=== PATIENT | female | born 1970 | race Caucasian/White ===

== ENCOUNTER 2016-11-28 12:30 | Emergency (ER) | payer OTHER ==
[2016-11-28] MEDS ORDERED: NS 0.9% 1000 ML* 1,000 ML IV ONE (12:58)
[2016-11-28] MEDS ORDERED: Ondansetron INJ* 2 MG/ML VIAL IV ONE (12:58)
--- NOTE | 2016-11-28 14:04 | RAD ---
INDICATION: Right-sided pain COMPARISON: None TECHNIQUE: Longitudinal and transverse scans of the right upper quadrant were obtained. Doppler interrogation of the hepatic and portal venous system was performed. FINDINGS: Liver: The liver is normal in size and echogenicity. There are no focal masses. The liver measures 13.0 cm in cephalocaudal dimension. Vessels: There is normal hepatic and portal venous flow. Bile ducts: There is no evidence of intrahepatic or extrahepatic ductal dilatation. The common duct measures 0.3 cm. Gallbladder: The sonographic appearance of the gallbladder is normal. There is no evidence of cholelithiasis, thickening of the gallbladder wall, or pericholecystic fluid. Pancreas: The visualized pancreas appears normal Right kidney: The right kidney is normal in size and echogenicity. There are no masses or calculi. There is no evidence of hydronephrosis. The right kidney measures 10.7 x 3.5 x 5.2 cm. IVC and aorta: The aorta and superior vena cava appear normal. Fluid: There is no ascites. Other: None. IMPRESSION: NORMAL GALLBLADDER.
--- NOTE | 2016-11-28 14:12 | RAD ---
Indication: Right lower quadrant pain, history of right ovarian cyst. COMPARISON: Comparison is made with a prior pelvic ultrasound from August 03, 2012. TECHNIQUE: Multiple real-time transvaginal images of the pelvis were obtained. FINDINGS: The uterus is mildly enlarged and normal in shape. The uterus measured 10.0 x 5.1 x 6.7 cm. The endometrial echo is slightly prominent and heterogeneous measuring 1.2 cm in thickness. There is a small hypoechoic mass present in the posterior body of the uterus measuring 1.4 x 0.7 x 1.0 cm most consistent with a small leiomyoma. The right ovary measured 2.5 x 1.0 x 1.8 cm. The left ovary measured 3.2 x 1.2 x 2.3 cm. There is vascular flow within both ovaries. There is a small simple cyst present within the left ovary measured 1.5 x 1.1 x 1.6 cm most consistent with a follicular cyst. No free intraperitoneal fluid is seen. IMPRESSION: 1. NO EVIDENCE FOR OVARIAN TORSION. 2. MILDLY ENLARGED UTERUS WITH AT LEAST ONE SMALL LEIOMYOMA NOTED. 3. MILDLY PROMINENT HETEROGENEOUS ENDOMETRIUM. SUGGEST A FOLLOW-UP TRANSVAGINAL PELVIC ULTRASOUND IN 1-2 MONTHS TIME.
[2016-11-28 15:06] LABS: Hematocrit 40 % (35-47); Hemoglobin 13.5 g/dl (12.0-16.0); Mean Corpuscular HGB Conc 33 g/dl (31-36); Mean Corpuscular Hemoglobin 30 pg (27-31); Mean Corpuscular Volume 91 fL (80-97); Mean Platelet Volume 8 um3 (7.4-10.4); Red Blood Count 4.46 10^6/ul (4.0-5.4); Red Cell Distribution Width 14 % (10.5-15); White Blood Count 7.2 10^3/ul (3.5-10.8)
[2016-11-28 15:08] LABS: Urine Bilirubin Negative (Negative); Urine Glucose Negative (Negative); Urine Nitrite Negative (Negative)
[2016-11-28 15:22] LABS: BUN/Creatinine Ratio 15.5 (8-20); EGFR Non-African American 72.4 (>60); Potassium 3.9 mmol/L (3.5-5.0)
[2016-11-28 15:23] LABS: Albumin 4.3 g/dL (3.2-5.2); C Reactive Protein 1.58 mg/L (< 5.00); Calcium 9.8 mg/dL (8.6-10.3); EGFR African American 93.1 (>60); Globulin 2.9 g/dL (2-4); Total Bilirubin 0.4 mg/dL (0.2-1.0); Total Protein 7.2 g/dL (6.4-8.9)
[2016-11-28] MEDS ORDERED: Iohexol 300* (CONTRAST) 10 ML SDV IV ONE (15:35)
[2016-11-28 15:38] LABS: TSH (Thyroid Stimulating Horm) 2.19 mcIU/mL (0.34-5.60)
[2016-11-28 15:45] VITALS: BP 117/72
--- NOTE | 2016-11-28 16:26 | RAD ---
Indication: Right lower quadrant pain. Contrast: Administered 91.0 ml of OMNIPAQUE 300 mgi/ml CT of the abdomen and pelvis was performed after oral and IV contrast administration. Coronal and sagittal reconstructed images were obtained. The lung bases demonstrate no pleural fluid, nodules or masses. Some pleural parenchymal scarring is noted in the left lung base. The heart demonstrates no pericardial effusion. Liver is normal in size. No focal lesions or intrahepatic ductal dilatation is noted. The gallbladder demonstrates no calcified gallstone. No pericholecystic fluid or wall thickening is identified. The spleen is normal in size. The pancreas demonstrates no mass or pancreatic ductal dilatation. Common duct is not dilated. No adrenal masses are noted. The kidneys demonstrate symmetric nephrograms. Symmetric excretion is noted no evidence of significant hydronephrosis or hydroureter. No retroperitoneal lymphadenopathy is noted. The colon is filled with stool. CT of the pelvis demonstrates normal appearing appendix. There are foci of air within the appendix. No pelvic adenopathy is noted. No dilated loops of bowel are noted. The colon is filled with stool. The urinary bladder is unremarkable. The uterus demonstrates no focal masses. The ovaries are grossly unremarkable. No free fluid is identified. No hernias are noted. IMPRESSION: NORMAL APPEARING APPENDIX. NO ABNORMAL MASSES OR FLUID COLLECTIONS ARE NOTED. NO EVIDENCE OF BOWEL OBSTRUCTION IS IDENTIFIED.
--- NOTE | 2016-11-28 17:00 | ED ---
I, Veto,Heber, scribed for Herb Schwartz MD on 11/28/16 at 1259 . Abdominal Pain/Female - HPI Summary HPI Summary: This 46 y/o female presents to ED for acute on chronic right sided abd pain that radiates to back since 2 days ago. Pt states that her abd discomfort started since 2-3 months ago but decided to visit ED today with PCP's urges. Pt reports chronic loose stool since 2 days ago and abd bloating, mild nausea, but denies any fever, chills, black stools, dysuria, or hematuria. Movement does not make the pain worse. PMHx includes ovarian cyst s/p removal in , 2 mm right ovarian cyst that is currently being monitored since last summer. 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 LMP is 3 weeks ago. She reports that her menstrual cycles are very irregular with intermittent bleeding in between. Pt is agreeable to transvaginal US. - History of Current Complaint Chief Complaint: EDAbdPain Stated Complaint: ABD AND BACK PAIN Time Seen by Provider: 11/28/16 12:44 Hx Obtained From: Patient, Medical Records Hx Last Menstrual Period: 11/07/2016 Onset/Duration: Gradual Onset, Still Present Timing: Constant Pain Intensity: 3 Pain Scale Used: 0-10 Numeric Location: Discrete At: RLQ Radiates: Yes Radiates to: Back Character: Dull, Other: - bloating Aggravating Factor(s): Nothing Alleviating Factor(s): Nothing Associated Signs and Symptoms: Positive: Nausea, Diarrhea - loose. Negative: Fever, Blood in Stool, Urinary Symptoms, Decreased Appetite Allergies/Adverse Reactions: Allergies Allergy/AdvReac Type Severity Reaction Status Date / Time Azithromycin [From Zithromax] Allergy Rash Verified 03/24/16 15:50 Sulfa Antibiotics Allergy Rash Verified 03/24/16 15:50 PMH/Surg Hx/FS Hx/Imm Hx Endocrine/Hematology History: Denies: Hx Diabetes, Hx Thyroid Disease Cardiovascular History: Denies: Hx Hypertension Respiratory History: Denies: Hx Asthma, Hx Chronic Obstructive Pulmonary Disease (COPD) GI History: Denies: Hx Ulcer - Cancer History Hx Chemotherapy: No Hx Radiation Therapy: No - Surgical History Surgery Procedure, Year, and Place: C5-C6 FUSION Infectious Disease History: No Infectious Disease History: Denies: Hx Hepatitis, Hx Human Immunodeficiency Virus (HIV), Traveled Outside the [place] in Last 30 Days - Family History Known Family History: Negative: Other - breast CA - Social History Alcohol Use: Occasionally Hx Substance Use: No Substance Use Type: Reports: None Hx Tobacco Use: No Smoking Status (MU): Never Smoked Tobacco Review of Systems Negative: Fever, Chills Positive: Abdominal Pain - right sided abd pain radiating to back, Diarrhea - loose, Nausea Negative: dysuria, hematuria Negative: Anxious, Depressed All Other Systems Reviewed And Are Negative: Yes Physical Exam Triage Information Reviewed: Yes Vital Signs On Initial Exam: Initial Vitals Temp Pulse Resp BP Pulse Ox 98.2 F 56 20 102/70 100 11/28/16 12:33 11/28/16 12:33 11/28/16 12:33 11/28/16 12:33 11/28/16 12:33 Vital Signs Reviewed: Yes Appearance: Positive: Pain Distress - mild Skin: Positive: Warm, Skin Color Reflects Adequate Perfusion, Dry Head/Face: Positive: Normal Head/Face Inspection Eyes: Positive: EOMI, BRYAN Neck: Positive: Supple, Nontender Respiratory/Lung Sounds: Positive: Breath Sounds Present Cardiovascular: Positive: RRR, Pulses are Symmetrical in both Upper and Lower Extremities Abdomen Description: Positive: Other: - right mid tenderness Bowel Sounds: Positive: Present Musculoskeletal: Positive: Strength/ROM Intact Neurological: Positive: Sensory/Motor Intact, Alert, Oriented to Person Place, Time Psychiatric: Positive: Affect/Mood Appropriate AVPU Assessment: Alert Diagnostics - Vital Signs Vital Signs Temp Pulse Resp BP Pulse Ox 11/28/16 12:33 98.2 F 56 20 102/70 100 - Laboratory Lab Results: Lab Results 11/28/16 11/28/16 11/28/16 Range/Units 14:45 14:45 14:45 WBC 7.2 (3.5-10.8) 10^3/ul RBC 4.46 (4.0-5.4) 10^6/ul Hgb 13.5 (12.0-16.0) g/dl Hct 40 (35-47) % MCV 91 (80-97) fL MCH 30 (27-31) pg MCHC 33 (31-36) g/dl RDW 14 (10.5-15) % Plt Count 266 (150-450) 10^3/ul MPV 8 (7.4-10.4) um3 Neut % (Auto) 57.9 (38-83) % Lymph % (Auto) 31.0 (25-47) % [place] % (Auto) 7.7 (1-9) % Eos % (Auto) 2.2 (0-6) % Baso % (Auto) 1.2 (0-2) % Absolute Neuts (auto) 4.2 (1.5-7.7) 10^3/ul Absolute Lymphs (auto) 2.2 (1.0-4.8) 10^3/ul Absolute Monos (auto) 0.6 (0-0.8) 10^3/ul Absolute Eos (auto) 0.2 (0-0.6) 10^3/ul Absolute Basos (auto) 0.1 (0-0.2) 10^3/ul Absolute Nucleated RBC 0.01 10^3/ul Nucleated RBC % 0.1 INR (Anticoag Therapy) 0.94 (0.89-1.11) APTT 31.6 (26.0-36.3) seconds Sodium 136 (133-145) mmol/L Potassium 3.9 (3.5-5.0) mmol/L Chloride 104 (101-111) mmol/L Carbon Dioxide 30 (22-32) mmol/L Anion Gap 2 (2-11) mmol/L BUN 13 (6-24) mg/dL Creatinine 0.84 (0.51-0.95) mg/dL Est GFR ( Amer) 93.1 (>60) Est GFR (Non-Af Amer) 72.4 (>60) BUN/Creatinine Ratio 15.5 (8-20) Glucose 83 (70-100) mg/dL Lactic Acid (0.5-2.0) mmol/L Calcium 9.8 (8.6-10.3) mg/dL Total Bilirubin 0.40 (0.2-1.0) mg/dL AST 18 (13-39) U/L ALT 15 (7-52) U/L Alkaline Phosphatase 53 (34-104) U/L C-Reactive Protein 1.58 (< 5.00) mg/L Total Protein 7.2 (6.4-8.9) g/dL Albumin 4.3 (3.2-5.2) g/dL Globulin 2.9 (2-4) g/dL Albumin/Globulin Ratio 1.5 (1-3) Lipase 38 (11.0-82.0) U/L TSH 2.19 (0.34-5.60) mcIU/mL Beta HCG, Quant 0.94 mIU/mL Urine Color Urine Appearance Urine pH (5-9) Ur Specific [place] (1.010-1.030) Urine Protein (Negative) Urine Ketones (Negative) Urine Blood (Negative) Urine Nitrate (Negative) Urine Bilirubin (Negative) Urine Urobilinogen (Negative) Ur Leukocyte Esterase (Negative) Urine Glucose (Negative) 11/28/16 11/28/16 Range/Units 14:45 14:45 WBC (3.5-10.8) 10^3/ul RBC (4.0-5.4) 10^6/ul Hgb (12.0-16.0) g/dl Hct (35-47) % MCV (80-97) fL MCH (27-31) pg MCHC (31-36) g/dl RDW (10.5-15) % Plt Count (150-450) 10^3/ul MPV (7.4-10.4) um3 Neut % (Auto) (38-83) % Lymph % (Auto) (25-47) % [place] % (Auto) (1-9) % Eos % (Auto) (0-6) % Baso % (Auto) (0-2) % Absolute Neuts (auto) (1.5-7.7) 10^3/ul Absolute Lymphs (auto) (1.0-4.8) 10^3/ul Absolute Monos (auto) (0-0.8) 10^3/ul Absolute Eos (auto) (0-0.6) 10^3/ul Absolute Basos (auto) (0-0.2) 10^3/ul Absolute Nucleated RBC 10^3/ul Nucleated RBC % INR (Anticoag Therapy) (0.89-1.11) APTT (26.0-36.3) seconds Sodium (133-145) mmol/L Potassium (3.5-5.0) mmol/L Chloride (101-111) mmol/L Carbon Dioxide (22-32) mmol/L Anion Gap (2-11) mmol/L BUN (6-24) mg/dL Creatinine (0.51-0.95) mg/dL Est GFR ( Amer) (>60) Est GFR (Non-Af Amer) (>60) BUN/Creatinine Ratio (8-20) Glucose (70-100) mg/dL Lactic Acid 0.7 (0.5-2.0) mmol/L Calcium (8.6-10.3) mg/dL Total Bilirubin (0.2-1.0) mg/dL AST (13-39) U/L ALT (7-52) U/L Alkaline Phosphatase (34-104) U/L C-Reactive Protein (< 5.00) mg/L Total Protein (6.4-8.9) g/dL Albumin (3.2-5.2) g/dL Globulin (2-4) g/dL Albumin/Globulin Ratio (1-3) Lipase (11.0-82.0) U/L TSH (0.34-5.60) mcIU/mL Beta HCG, Quant mIU/mL Urine Color Colorless Urine Appearance Clear Urine pH 7.0 (5-9) Ur Specific [place] 1.003 L (1.010-1.030) Urine Protein Negative (Negative) Urine Ketones Negative (Negative) Urine Blood Negative (Negative) Urine Nitrate Negative (Negative) Urine Bilirubin Negative (Negative) Urine Urobilinogen Negative (Negative) Ur Leukocyte Esterase Negative (Negative) Urine Glucose Negative (Negative) Result Diagrams: 11/28/16 14:45 11/28/16 14:45 Lab Statement: Any lab studies that have been ordered have been reviewed, and results considered in the medical decision making process. - CT Ab/P CT Interpretation: No Acute Changes - NORMAL APPEARING APPENDIX. NO ABNORMAL MASSES OR FLUID COLLECTIONS ARE NOTED. NO EVIDENCE OF BOWEL OBSTRUCTION IS IDENTIFIED. CT Interpretation Completed By: Radiologist - Additional Comments Diagnostic Additional Comments: US Gallbladder -- Normal Gallbladder US Transvaginal -- 1. NO EVIDENCE FOR OVARIAN TORSION. 2. MILDLY ENLARGED UTERUS WITH AT LEAST ONE SMALL LEIOMYOMA NOTED. 3. MILDLY PROMINENT HETEROGENEOUS ENDOMETRIUM. SUGGEST A FOLLOW-UP TRANSVAGINAL PELVIC ULTRASOUND IN 1-2 MONTHS TIME. Re-Evaluation - Re-Evaluation First Eval Re-Evaluation Time: 16:13 Comment: in room to update pt on plan of care. Abdominal Pain Fem Course/Dx - Course Course Of Treatment: WELL IN ED. DISCUSSED RESULTS WITH PATIENT. PAIN 3/10 IN ED. DISCHARGE HOME STABLE, WILL F/U WITH PMD. - Diagnoses Provider Diagnoses: Abdominal pain, Leiomyoma Discharge - Discharge Plan Condition: Stable Disposition: HOME Patient Education Materials: Abdominal Pain (ED), Uterine Fibroids (ED) Referrals: Tera Babb MD [Primary Care Provider] - Additional Instructions: FOLLOW UP WITH YOUR DOCTOR. RETURN TO THE EMERGENCY DEPARTMENT FOR ANY WORSENING OF YOUR CONDITION; PAIN, FEVER, YOU FEEL ILL OR QUESTIONS OR CONCERNS. The documentation as recorded by the Veto tang Soohyun accurately reflects the service I personally performed and the decisions made by me, Herb Schwartz MD.
== END 2016-11-28 17:31 | disposition home or self-care (01) ==
LOC: ED 12:30
DX: R10.31 Right lower quadrant pain (principal); D21.9 Benign neoplasm of connective and other soft tissue, unspecified; R11.0 Nausea; R19.7 Diarrhea, unspecified
CPT/HCPCS: 36415; 74177; 76705; 76830; 80053; 81003; 83605; 83690; 84443; 84702; 85025; 85610; 85730; 86140; 96374; 99283; J2405; Q9967

== ENCOUNTER 2017-09-13 09:33 | Emergency (ER) | payer OTHER ==
--- NOTE | 2017-09-13 11:45 | RAD ---
Indication: Pelvic pain. CT of the abdomen and pelvis was performed without oral or IV contrast administration. Coronal and sagittal reconstructed images were obtained. Lung bases demonstrate no pleural fluid, nodules or masses. Heart size without evidence of pericardial effusion. The liver is normal in size. No focal lesions or intrahepatic ductal dilatation is noted. The pancreas demonstrates no mass or pancreatic duct dilatation. The common duct is not dilated. The gallbladder demonstrates no calcified gallstones. No pericholecystic fluid or wall thickening is identified. The spleen is normal in size. No adrenal masses are noted. The kidneys demonstrate no hydronephrosis. No a residual dilatation is noted. No dilated loops of bowel are noted. Colon is filled with stool. CT of the pelvis demonstrates enlarged right ovary with probable ovarian cyst measuring up to 3.8 cm. No definite free fluid is identified. Urinary bladder is unremarkable. IMPRESSION: No evidence of obstructive uropathy is noted. There is suggestion of a right ovarian cyst measuring up to 3.8 cm.
--- NOTE | 2017-09-13 12:23 | RAD ---
INDICATION: Pelvic pain history of ovarian cyst, right lower quadrant pain. COMPARISON: Comparison is made with a prior pelvic ultrasound from November 28, [address] of the abdomen and pelvis from September 13, 2017. TECHNIQUE: Multiple real-time transvaginal images of the pelvis were obtained. FINDINGS: The uterus was mildly enlarged and slightly heterogeneous in echogenicity. The uterus measured 10.4 x 5.4 x 7.0 cm. The endometrial echo measured 0.5 cm in thickness. The right ovary measured 5.1 x 3.2 x 4.6 cm. The left ovary measured 3.0 x 1.1 x 1.5 cm. There is vascular flow within both ovaries. There is a slightly complex cyst present within the right ovary measuring 4.3 x 2.6 x 3.5 cm. This correlates with the prior CT abnormality. No free intraperitoneal fluid is seen. IMPRESSION: 1. SLIGHTLY COMPLEX LOW SUSPICION 4.3 CM RIGHT OVARIAN CYST. RECOMMEND A FOLLOW-UP PELVIC ULTRASOUND IN 1-2 MONTHS TIME TO DEMONSTRATE RESOLUTION. 2. MILDLY ENLARGED UTERUS.
[2017-09-13 12:37] VITALS: BP 110/52
--- NOTE | 2017-09-13 13:12 | UC ---
Complaint Female HPI - HPI Summary HPI Summary: Patient presents with a complaints of right lower quadrant abdominal pain which she states has been a problem for a long time, and states she had been worked up by Dr. Chan and is considering an underline ablation. She presents today states her last period was two months ago, and now she had her periods and also reports pelvic pain that has gotten more severe. She states the pain is in the RLQ, and is a sharp pain. She denies any abnormal vaginal discharge, dysuria and states she has been checked for STD's and had multiple visits, test, US, and the work-ups are always the same. She presents today primarily as a result of abdominal pain/pelvic pain. - History Of Current Complaint Chief Complaint: UCGU Stated Complaint: PELVIC PAIN Time Seen by Provider: 09/13/17 09:59 Hx Obtained From: Patient Hx Last Menstrual Period: 09/08/17 Onset/Duration: Gradual Onset, Lasting Days Timing: Constant Severity Initially: Mild Severity Currently: Moderate Pain Intensity: 2 Pain Scale Used: 0-10 Numeric Character: Sharp Aggravating Factor(s): Movement Alleviating Factor(s): Nothing Associated Signs And Symptoms: Positive: Negative - Risk Factors Ectopic Risk Factor: Negative Ovarian Torsion Risk Factor: Negative - Allergies/Home Medications Allergies/Adverse Reactions: Allergies Allergy/AdvReac Type Severity Reaction Status Date / Time Azithromycin [From Zithromax] Allergy Rash Verified 03/24/16 15:50 Sulfa Antibiotics Allergy Rash Verified 03/24/16 15:50 Home Medications: Home Medications Ibuprofen [Ibuprofen 200 MG] 09/13/17 [History] PMH/Surg Hx/FS Hx/Imm Hx Previously Healthy: Yes - Surgical History Surgical History: Yes Surgery Procedure, Year, and Place: C5-C6 FUSION , pelivic and ovarian cyst removal, right lumpectomy, tonsils - Family History Known Family History: Positive: Unknown Negative: Other - breast CA - Social History Lives: Alone Alcohol Use: Occasionally Substance Use Type: None Smoking Status (MU): Never Smoked Tobacco Review of Systems Constitutional: Negative Skin: Negative Eyes: Negative ENT: Negative Respiratory: Negative Cardiovascular: Negative Gastrointestinal: Abdominal Pain Genitourinary: Abnormal Bleeding Motor: Negative Neurovascular: Negative Musculoskeletal: Negative Neurological: Negative Psychological: Negative Is Patient Immunocompromised?: No All Other Systems Reviewed And Are Negative: Yes Physical Exam Triage Information Reviewed: Yes Appearance: Pain Distress Vital Signs: Initial Vital Signs Temp 98.4 F 09/13/17 09:50 Pulse 54 09/13/17 09:50 Resp 16 09/13/17 09:50 BP 105/71 09/13/17 09:50 Pulse Ox 100 09/13/17 09:50 Vital Signs Reviewed: Yes Eye Exam: Normal ENT Exam: Normal Neck exam: Normal Neck: Positive: 1 Respiratory Exam: Normal Cardiovascular Exam: Normal Abdominal Exam: Normal, Other - pain on palpation of the pelvis, right side without rebound, guarding, or HSM. Abdomen Description: Positive: No Organomegaly, Soft Musculoskeletal Exam: Normal Neurological Exam: Normal Psychological Exam: Normal Skin Exam: Normal Complaint Female Dx - Course Course Of Treatment: UA and test revealed hematuria, and negative for . Patient presents with a past medical history of peliv pain, ovarian cyst and is currently a patient of Dr. Chan. she declined a pelvic exam today. A CT adomen and transvaginal US was obtained and did reveal a 3.8 cm right ovarian cyst. The patient was given a copy of the reports. The patient was referred to Dr. Rivera, and Dustin Fragoso for follow up. Pain was addressed, given percocet. I discussed with the patient that I was limited in the testing available in the clinic today, and that I preferred she go to the ER for labs, and CT abdomen and pelvis with contrast, she verbalzied understanding and agreement to testing here with the understanding that if the pain in the RLQ changes to gets worse she would need to go the ER immediatly. - Differential Dx/Diagnosis Differential Diagnosis/HQI/PQRI: Ovarian Cyst Provider Diagnoses: ovarian cyst Discharge - Discharge Plan Condition: Stable Disposition: HOME Prescriptions: oxyCODONE/Acetamin 5/325 MG* [Percocet 5/325 TAB*] 1 tab PO Q4H PRN #14 tab MDD 6 PRN Reason: pelvic pain Patient Education Materials: Ovarian Cyst (ED), Pelvic Pain in Women (ED) Referrals: Tera Babb MD [Primary Care Provider] -
== END 2017-09-13 12:38 | disposition home or self-care (01) ==
LOC: UCEAST 09:33
DX: N83.201 Unspecified ovarian cyst, right side (principal); Z72.89 Other problems related to lifestyle
CPT/HCPCS: 74176; 76830; 81003; 81025; 99212; G0463

== ENCOUNTER 2017-10-20 09:16 | Observation (INO) | payer OTHER ==
[2017-10-20] MEDS ORDERED: predniSONE TAB* 50 MG PO ONE (10:00)
[2017-10-20] MEDS ORDERED: LORazepam TAB(*) 1 MG ONE (10:29)
[2017-10-20] MEDS ORDERED: Naproxen TAB* 250 MG ONE (10:30)
[2017-10-20] MEDS ORDERED: oxyCODONE SR TAB(*) 10 MG TAB.SR ONE (10:31)
[2017-10-20] MEDS ORDERED: Scopolamine 1.5 mg* PATCH ONE (10:32)
[2017-10-20 10:33] LABS: ABS Basophils 0 10^3/ul (0-0.2); ABS Eosinophils 0 10^3/ul (0-0.6); ABS Lymphocytes 0.6 10^3/ul (1.0-4.8); ABS Monocytes 0.1 10^3/ul (0-0.8); ABS Neutrophils 7.6 10^3/ul (1.5-7.7); ABS Nucleated RBC 0 10^3/ul; Eosinophil % 0 % (0-6); Hematocrit 41 % (35-47); Hemoglobin 13.8 g/dl (12.0-16.0); Lymphocyte % 7.7 % (25-47); Mean Corpuscular HGB Conc 34 g/dl (31-36); Mean Corpuscular Hemoglobin 31 pg (27-31); Mean Corpuscular Volume 91 fL (80-97); Mean Platelet Volume 8 um3 (7.4-10.4); Nucleated Red Blood Cells % 0; Platelet Count 272 10^3/ul (150-450); Red Blood Count 4.48 10^6/ul (4.0-5.4); Red Cell Distribution Width 14 % (10.5-15); White Blood Count 8.4 10^3/ul (3.5-10.8)
[2017-10-20] MEDS ORDERED: Ondansetron INJ* 2 MG/ML VIAL ONE ×2 (10:33→11:49)
[2017-10-20] MEDS ORDERED: diPHENhydraMINE IV* 50 MG/ML 1 ml VIAL (BENADRYL) ONE (10:36)
[2017-10-20 10:48] LABS: EGFR Non-African American 74.1 (>60)
[2017-10-20 10:49] LABS: INR 0.92 (0.77-1.02)
[2017-10-20] MEDS ORDERED: Clindamycin 900 MG IVPREMIX(* 900 MG/50 ML SDV IV ONE (11:00)
[2017-10-20] MEDS ORDERED: Midazolam* 1 MG/ML 10 ML VIAL (10 MG) ONE (11:38)
[2017-10-20] MEDS ORDERED: fentaNYL* 50 MCG/ML 5 ML VIAL (250 MCG VIAL) ONE ×2 (11:38→13:32)
[2017-10-20] MEDS ORDERED: Flumazenil* 0.1 MG/ML 5 ML MDV ONE (11:38)
[2017-10-20] MEDS ORDERED: Naloxone* 0.4 MG/ML 1 ML VIAL ONE (11:38)
[2017-10-20] MEDS ORDERED: Iohexol 350 (CONTRAST) 200 ML MDV IV ONE (11:40)
[2017-10-20] MEDS ORDERED: nitroGLYCERIN DRIP* 25,000 MCG/250 ML BTL ONE (11:41)
[2017-10-20] MEDS ORDERED: Heparin 2 UNITS/ML IVPREMIX* 2,000 ML IV ONE (11:41)
[2017-10-20] MEDS ORDERED: Ketorolac INJ* 30 MG/ML 1 ML VIAL ONE (11:41)
[2017-10-20] MEDS ORDERED: Lidocaine 1% INJ* 10 MG/ML 30 ML SDV ONE (11:42)
[2017-10-20] MEDS ORDERED: Iodixanol* (CONTRAST) 320 MG/ML 100 ML SDV ONE (12:05)
[2017-10-20] MEDS ORDERED: NS 0.9% 1000 ML* 1,000 ML IV SCH ×2 (13:15→19:26)
[2017-10-20] MEDS ORDERED: fentaNYL* 50 MCG/ML 2 ML VIAL (100 MCG VIAL) ONE (13:17)
[2017-10-20] MEDS ORDERED: HYDROmorphone INJ* 1 MG/ML CARPUJECT SYRINGE ONE (13:46)
[2017-10-20] MEDS ORDERED: HYDROmorphone PCA* 20 MG/20 ML PCA.SYRING PCA SCH (14:00)
[2017-10-20] MEDS ORDERED: LORazepam INJ* 2 MG/ML 1 ML VIAL IV PUSH PRN ×2 (14:41→19:23)
[2017-10-20] MEDS ORDERED: HYDROmorphone INJ* 2 MG/ML CARPUJECT SYRINGE IV SLOW PU PRN ×2 (14:41→15:14)
[2017-10-20] MEDS ORDERED: HYDROmorphone INJ* 2 MG/ML CARPUJECT SYRINGE ONE (14:47)
[2017-10-20] MEDS ORDERED: HYDROmorphone INJ* 2 MG/ML CARPUJECT SYRINGE IV SLOW PU ONE (16:11)
--- NOTE | 2017-10-20 16:23 | PN ---
Progress Note - Progress Note Date of Service: 10/20/17 SOAP: Subjective: Pain currently "9/10" when patient awake. No nausea or emesis. Objective: Selected Entries 10/20/17 10/20/17 10/20/17 15:31 16:09 16:14 Pulse Rate 55 Respiratory 17 Rate Blood Pressure 137/66 (mmHg) Blood Pressure 89 Mean O2 Sat by Pulse 96 Oximetry Patient on Room Yes Air Sleepy, but arousable to voice. Minimal distress AAO X 3 Abdomen is soft (when not araceli rectus abdomini) Right CF arteriotomy site is soft, NT Dressing is CDI 2+ pulses at right PLASTICS PLATER, pop and DPA RLE neuromuscular intact Assessment: 47 YOF status post Uterine Artery Embolization with nausea well controlled, but requiring additional pain control. Plan: 1. Add Dilaudid bolus 1 mg IV Q 4 hours. 2. Add Ativan 0.5 mg IV Q 4 hours for anxiety & pain. 3. Bolus 500 mL NS. 4. Otherwise standard post [place] Interventional Radiology management.
[2017-10-20] MEDS ORDERED: NS 0.9% 500 ML* 500 ML IV ONE ×3 (17:18→18:30)
[2017-10-20] MEDS: Ondansetron INJ* 2 MG/ML VIAL IV SCH ×3 (17:27→23:53)
[2017-10-20] MEDS ORDERED: Ketorolac INJ* 15 MG/ML 1 ML VIAL IV PUSH SCH (18:00)
--- NOTE | 2017-10-20 18:16 | RAD ---
CPT II Codes: 6045F Procedure(s) performed: * Suprarenal aortogram. * Pelvic arteriogram of the bilateral iliac arterial system specifically including the bilateral internal iliac arteries and bilateral uterine arteries. * Catheter embolization of the bilateral uterine arteries. Date of service: October 20, 2017 Indication for procedure: Chronic, worsening menstrual pelvic pain, increased menstrual and intermenstrual bleeding and dyspareunia. Comparison: Pelvic ultrasound dated September 13, 2017 and November 28, 2016, the latter which defects at least one uterine fibroid. CT abdomen pelvis dated November 28, 2016 which commonly defects a large lobular uterus and at least one 4 cm right of midline fibroid. Contrast: 80 mL of Visipaque 320 Fluoroscopy Time: 27.1 minutes Vessels Accessed: Percutaneous access was obtained with ultrasound guidance in the right common femoral artery in the retrograde. Catheter arteriography, with the catheter tip located within the lumen of the following arteries, was performed at the Aorta, Bilateral Internal Iliac Arteries, Bilateral Uterine Arteries. Anesthesia: Conscious sedation with IV Fentanyl and Versed as well as local 1% lidocaine injected locally at the arteriotomy site. Conscious sedation time: Timeout: 1205 hours Case end: 1346 hours Total conscious sedation time: 1 hour and 41 minutes Additional medications: * 500 mcg IA nitroglycerin injected intermittently throughout the course of the procedure to alleviate arterial spasm. * Intra-arterial Toradol, 15 mg injected into each uterine artery, for a total of 30 mg intra-arterial.. * Intravenous Toradol, 30 mg. * Transdermal scopolamine patch 1.5 mg applied to the mastoid process prior to the procedure beginning. * A total of 4 mg Zofran was administered intravenously. * Prior to the procedure the patient received Ativan 1 mg p.o., Naprosyn 250 mg p.o. and OxyContin 10 mg p.o. PROCEDURE NOTE AND INTRAPROCEDURAL IMAGING FINDINGS: Immediately prior to the procedure the patient signed consent after thoroughly discussing all risks and benefits. The patient was positioned on the fluoroscopy table in the supine position and the bilateral groins were shaved, prepped and draped in standard sterile fashion. Using fluoroscopic imaging the location of the right common femoral head was marked externally with a skin marker on the patient's groin. Utilizing sonographic guidance and palpation the right common femoral artery was cannulated overlying the right femoral head with an 21-gauge needle. An ultrasound image was saved. A microwire was slowly and smoothly advanced to the aortic bifurcation under fluoroscopic imaging. No buckling of the wire was visualized to indicate dissection. Over the wire a 5-Tunisian catheter was advanced into the artery, the inner stiffener removed and the microwire was replaced with a 0.035" Bentsen wire which was advanced into the aorta. Finally the 5 Tunisian catheter was exchanged for a 5 Tunisian sidearm sheath. Over the Bentson wire a 5-Tunisian C2 catheter was advanced to the iliac bifurcation and the catheter and wire were utilized to access the contralateral left external iliac artery. The catheter was removed and exchanged for a 5-Tunisian Merit Impress catheter which was advanced into the contralateral iliac arterial system and then formed in the lower abdominal aorta. With the wire slightly protruding out of the tip of the catheter the right common iliac and internal iliac artery was accessed. Utilizing the wire and catheter the right uterine artery was cannulated. Once the right uterine artery was cannulated with the 5-Tunisian catheter, a Progreat 2.8 Fr microcatheter and microwire were advanced into the parent catheter and advanced into the horizontal portion of the right uterine artery. To ensure adequate arterial flow through the uterine artery the 5-Tunisian. Catheter was backed out of the uterine artery until the tip was at the level of the left internal iliac artery. A more forceful injection of contrast into the horizontal portion of the right uterine artery depicted Riley arterial flow to the right ovary by the distal branches of the right uterine artery. There is an anastomosis and contrast was seen refluxing into the lower right ovarian artery. Considering the patient's perimenopausal age and severe pelvic pain associated with uterine fibroids it was decided to proceed with embolization of the right uterine artery despite the potential for partial embolization of the right ovary. Under fluoroscopic control approximately 1/2 vial of 500 um Embozenes and 1/2 vials of 500-700 micron Embospheres were slowly injected into the uterine artery to near complete stasis. Hope through the embolization 15 mg of Toradol was injected intra-arterially. The microcatheter was pulled back into the more proximal descending portion of the uterine artery and contrast angiography depicted near complete stasis of the uterine artery. The microcatheter was removed, the 0.035 inch hydrophilic wire reinserted into the 5-Tunisian catheter and the system was utilized to access the left internal iliac artery. With the catheter tip of the 5-Tunisian catheter at the left internal iliac artery, the wire was removed and contrast arteriography was performed demonstrating the right uterine artery. The uterine artery was selected with the 0.035 hydrophilic wire and the 5-Tunisian catheter was advanced into the vertical portion of the artery. Once the uterine artery was selected, the 2.8 Fr Progreat microcatheter and microwire were advanced into the parent catheter and advanced into the distal horizontal portion of the left uterine artery. Prior to embolization, contrast injection into the horizontal portion of the uterine artery demonstrated no large, obvious collateral blood flow to the ovary or a definite cervicovaginal branch descending inferiorly. Intra-arterial nitroglycerin was injected intermittently to alleviate arterial spasm. Under fluoroscopic control approximately 1/2 vial 500 um Embozenes was injected into the more midline portion of the left uterine artery. The microcatheter was drawn back to the midportion of the horizontal left uterine artery, contrast arteriography again showed no large cervicovaginal or ovarian collateral branches. Approximately 1/2 vial of 500-700 micron Embospheres were slowly injected into the uterine artery to near complete stasis. Hope through the embolization 15 mg of Toradol was injected intra-arterially. The microcatheter was pulled back into the more proximal descending portion of the uterine artery and contrast angiography depicted near complete stasis of the uterine artery. The microcatheter and wire were removed, a 0.035 inch wire was advanced into the 5-Tunisian catheter and the Impress catheter was removed. The communication of the right uterine and ovarian arteries seen early in the procedure raise the concern for contribution of arterial flow to the fibroid uterus by 1 or both ovarian arteries and the decision was made to proceed with an aortogram to evaluate the ovarian arteries. A 5-Tunisian pigtail multi sidehole catheter was advanced just above the level of the renal arteries and contrast aortography was performed visualizing the abdominal aorta, bilateral renal arteries and bilateral internal iliac arterial system. Only the right ovarian artery is faintly visible but is diminutive and was determined to not be contributing any clinically significant arterial flow to the fibroid uterus. Only the proximal portion of the artery was visible and there did not appear to be any significant flow from either ovarian artery below the level of the pelvic inlet. Cannulation and embolization of either of these arteries was declined. The wire was reinserted into the pigtail catheter and both the catheter and wire were removed under fluoroscopic control. The access sheath was removed and pressure was held at the common femoral arteriotomy for approximately 15 minutes. There were no signs of bleeding at the right groin access site and the site was dressed with sterile gauze and Tegaderm. The patient tolerated the procedure well and was transferred to the short stay recovery unit in stable condition for routine overnight observation and pain and nausea control. SUMMARY OF PROCEDURE, IMAGING FINDINGS AND INTERVENTIONS PERFORMED: 1. Diagnostic studies performed: * Arterial access was obtained at the right common femoral artery in the retrograde direction (i.e. towards the heart) with ultrasound guidance. A sonographic image was recorded. * Diagnostic catheter angiography (necessary to perform the appropriate interventions) was performed with the catheter tip in the aorta, bilateral internal iliac arteries and bilateral uterine arteries. * Catheter arteriography was performed of the abdominal aorta, bilateral renal arteries, bilateral iliac arterial system and specifically the bilateral uterine arteries. 2. Interpretation of diagnostic studies performed: * Bilateral uterine arteries providing flow to the patient's enlarged fibroid uterus. * Collateralization is noted at the right adnexa between the distal branches of the right uterine artery and right ovarian artery. * Suprarenal aortography does not demonstrate any significantly hypertrophied ovarian arteries providing arterial flow to the uterus or uterine fibroids and therefore cannulation and embolization of either ovarian artery was declined. 3. Surgical interventions performed: * Near stasis embolization of the bilateral uterine arteries utilizing 1 vial 500 um Embozenes and one vial 500-700 um Embospheres. 4. Interpretation of interventions performed: * Final arteriography demonstrated near complete stasis of the bilateral uterine arteries.. PLAN: 1. The patient will be admitted to short stay surgical unit for routine overnight observation including pain and nausea control. 2. Outpatient clinical and imaging follow-up according to the Interventional Radiology protocol.
[2017-10-20] MEDS ORDERED: Diazepam INJ (NF) 5 MG/ML 10 ML VIAL (50 MG TOTAL) IV PRN (19:33)
[2017-10-20 19:35] LABS: EGFR Non-African American 72.1 (>60)
[2017-10-20] MEDS ORDERED: NS 0.9% 1000 ML* 1,000 ML IV ONE (19:41)
[2017-10-20] MEDS: Diazepam TAB(*) 5 MG PO SCH (19:58)
[2017-10-20] MEDS: HYDROmorphone INJ* 2 MG/ML CARPUJECT SYRINGE IV SLOW PU SCH (19:59)
[2017-10-20] MEDS: Acetaminophen IV 1GM/100ML * 1,000 MG/100 ML VIAL IVPB SCH (22:03)
--- NOTE | 2017-10-20 23:20 | HP ---
ADMISSION HISTORY AND PHYSICAL: DATE OF ADMISSION: 10/20/17 REFERRING PHYSICIAN: Dr. Huang Horn. ADMITTING PHYSICIAN: Dr. Anival Morris.* (DICTATED BY SANJAY BAIN NP) CHIEF COMPLAINT: Abdominal pain. HISTORY OF PRESENT ILLNESS: This is a very pleasant 47-year-old female patient who has longstanding history of abdominal pain and ongoing gynecologic issues. Patient had presented to Dr. Horn for an elective ablation of leiomyoma of the uterus. Patient underwent that procedure today. She had an uneventful surgery; however, postoperatively, she had significant amount of pain after the uterine artery embolization. She had a little bit of nausea. She did have a decrease in urinary output, however, despite being given 4 normal saline boluses of 500 mL each. She still has a urinary catheter in place. Dr. Horn has asked Medicine to continue to help manage her pain in the postoperative period and her fluid status. PAST MEDICAL HISTORY: Other than seasonal allergies none is reported by patient. PAST SURGICAL HISTORY: She did have ovarian cyst removed back in the 80s. MEDICATIONS AT HOME: Fluticasone two puffs as needed for allergy symptoms of wheezing. ALLERGIES: She has allergy to ERYTHROMYCIN, IV CONTRAST DYE, and SULFA ANTIBIOTICS. SOCIAL HISTORY: Patient does not drink, does not smoke and does not use any drugs. She works multimedia specialist as a instructor pilot, owns her own business. REVIEW OF SYSTEMS: A 10-point review of systems is negative except as noted in the HPI. PHYSICAL EXAMINATION GENERAL: Patient is awake, but somewhat drowsy, mildly distressed. VITAL SIGNS: Temperature 96.1, respirations 13, pulse rate 68, O2 saturation 100% on 2 L nasal cannula, blood pressure was 109/64. HEENT: Patient is atraumatic, normocephalic. PERRLA with anicteric sclerae. Oral mucosa is very dry. She has intact dentition. NECK: Supple, nontender. She is very flat. Jugular veins at this time. No JVD noted. No carotid bruit auscultated. LUNGS: Clear bilaterally to auscultation with no wheezing, rhonchi, or rales. CARDIOVASCULAR: S1, S2 are present. No murmurs, gallops, or rubs noted. ABDOMEN: Soft, extremely tender especially in the right lower and right upper quadrant. She does have hypoactive bowel sounds noted. She has a Saxena catheter draining erika colored urine. She only has about 325 mL out in her bag despite 2 L of fluid administered. MUSCULOSKELETAL: There is no clubbing, no cyanosis, no edema. She has brisk capillary refill and gross motor and sensation intact. NEUROLOGIC: She is grossly intact with no focal deficits. PSYCHIATRIC: She is cooperative and appropriate. DIAGNOSTIC STUDIES/LAB DATA: CBC shows WBC is 8.4, RBC 4.48, hemoglobin 13.8, hematocrit 41, platelets 272. Chemistry: Sodium 137, potassium 4.2, chloride 107, CO2 23, BUN 16, creatinine 0.82. GFR 74.1. Glucose 130, calcium 9.8. Repeat chemistry at 7:04 p.m. shows CO2 of 20, which is little bit low and renal function remains intact with BUN of 16 and creatinine of 0.84. IMPRESSION: This is a very healthy 47-year-old female who is having significant amount of postoperative pain that has been difficult to manage, also low urinary output secondary to dehydration. PLAN: I have given her another liter of saline plus 300 mL an hour to help jump start her urine production. She will leave her Saxena catheter through the night tonight and measure her I and O very, very closely. Encouraged p.o. intake. She will continue on her Dilaudid HISTORY PROFESSOR as per Dr. Horn. I have added IV Ofirmev for two doses 1000 mg 8 hours apart to assist with her abdominal pain , also for her spasm and cramp like pain on the right abdomen, which is likely also secondary to her dehydration. At this point, I have also added Valium by mouth 5 mg every 4 hours. Upon reassessment of the patient, she appears much more comfortable. She still has low urine output; however, her pain is in much better control now as per the nursing staff. She can ambulate as tolerated. I am hoping that once the patient is up and ambulating now that her pain is under control, likely by the morning she will be feeling more comfortable and the urine output will continue to improve. The rest of the patient's course will be determined by further diagnostics, laboratories and other input from Dr. Horn or any other provider as warranted during this admission. Thank you very kindly, we will continue to monitor this patient closely. SANJAY BAIN, CONCRETE BLOCK PLANT SUPERVISOR [id number]/[facility] #: [id number] [facility] COMMUNITY HOSPITALSurinder
[2017-10-21] MEDS: Diazepam TAB(*) 5 MG PO SCH ×5 (01:59→18:09)
[2017-10-21] MEDS: HYDROmorphone INJ* 2 MG/ML CARPUJECT SYRINGE IV SLOW PU SCH (02:00)
[2017-10-21] MEDS: NS 0.9% 1000 ML* 1,000 ML IV SCH ×2 (05:05)
[2017-10-21] MEDS ORDERED: NS 0.9% 1000 ML* 1,000 ML IV ONE (06:00)
[2017-10-21] MEDS: Ondansetron INJ* 2 MG/ML VIAL IV SCH (06:04)
[2017-10-21] MEDS: Acetaminophen IV 1GM/100ML * 1,000 MG/100 ML VIAL IVPB SCH (06:06)
[2017-10-21] MEDS ORDERED: oxyCODONE/Acetamin 5/325 MG* TAB PO PRN ×2 (09:06→09:07)
[2017-10-21 09:33] LABS: EGFR Non-African American 80.9 (>60)
[2017-10-21] MEDS: Acetaminophen TAB* 325 MG PO SCH ×2 (10:14→15:28)
[2017-10-21] MEDS: Ondansetron TAB* 4 MG PO SCH ×2 (10:14→15:28)
--- NOTE | 2017-10-21 10:21 | RAD ---
INDICATION: Decreased urine output COMPARISON: CT abdomen pelvis dated November 28, 2016 TECHNIQUE: Real-time ultrasound examination of the bilateral kidneys and urinary bladder including grayscale and Doppler color flow analysis. FINDINGS: Bilaterally the kidneys are normal in size and echogenicity. There are no hypervascular renal masses. There are no renal calculi or hydronephrosis identified. The hagen of the urinary bladder are smooth. The pre and post voiding urinary bladder volumes are 233 mL and nearly 0 mL, respectively. Normal ureteral jets are identified bilaterally. IMPRESSION: Normal ultrasound of the kidneys and urinary bladder.
--- NOTE | 2017-10-21 11:27 | PN ---
Progress Note - Progress Note Date of Service: 10/21/17 SOAP: Subjective: Pain better controlled, currently her "usual" crampy right pelvic pain, ~2-4/ 10. Denies significant nausea. No emesis. Has been drinking water and ate small amount of breakfast. Denies flank pain. 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, pop and dpa Mild lower extremity swelling, but no pitting edema RLE is neuromuscular intact Selected Entries 10/21/17 10/21/17 10/21/17 07:21 09:04 10:16 Temperature 97.8 F Temperature Oral Source Pulse Rate 68 Respiratory Rate Blood Pressure 117/67 (mmHg) Blood Pressure 80 Mean Vital Signs ON RA Comment O2 Sat by Pulse 95 Oximetry Patient on Room Yes Air 10/21/17 11:10 Temperature Temperature Source Pulse Rate Respiratory 16 Rate Blood Pressure (mmHg) Blood Pressure Mean Vital Signs Comment O2 Sat by Pulse Oximetry Patient on Room Air Laboratory Tests 10/20/17 10/20/17 10/21/17 11:10 19:04 09:09 BUN 16 16 14 Creatinine 0.82 0.84 0.76 Est GFR (Non-Af Amer) 74.1 72.1 80.9 Patient Name: CLARY RICHARDSON Medical Record#: [id number] Ordering Physician: Huang Horn MD Acct.#: [id number] : 1970 Age: 47 Sex: F Location: SURGICAL STAY UNIT Exam Date: 10/21/17 0758 ADM Status: ADM Carrie Order Information: US RENAL AND BLADDER Accession Number: [id number] CPT: 12687 INDICATION: Decreased urine output COMPARISON: CT abdomen pelvis dated November 28, 2016 TECHNIQUE: Real-time ultrasound examination of the bilateral kidneys and urinary bladder including grayscale and Doppler color flow analysis. FINDINGS: Bilaterally the kidneys are normal in size and echogenicity. There are no hypervascular renal masses. There are no renal calculi or hydronephrosis identified. The hagen of the urinary bladder are smooth. The pre and post voiding urinary bladder volumes are 233 mL and nearly 0 mL, respectively. Normal ureteral jets are identified bilaterally. IMPRESSION: Normal ultrasound of the kidneys and urinary bladder. <Electronically signed by Huang Horn MD in OV> 10/21/17 1017 Dictated By: Huang Horn MD Dictated Date/Time: 10/21/17 1017 Transcribed Date/Time: 10/21/17 1015 Assessment: 47 YOF POD #1 status post Uterine Artery Embolization with pain and nausea currently controlled. The patient had low urine output following the UAE with normal BMP and normal renal ultrasound. Urine output is normalizing today. Decreased urine output felt to be secondary to pre-procedural dehydration, arterial iodinated contrast injection, NSAID pain therapy or some combination of the three. Plan: 1. D/C Saxena catheter and IV fluids. 2. Encourage ambulation and advancing diet. 3. Continue to closely monitor urine output. 4. Avoid NSAIDS. Post UAE pain control will be achieved with combination of Tylenol and oxycodone and possibly valium as an outpatient. 5. Will continue to monitor progress today with possible discharge to home later. 6. Dr. Nguyen (nephrology) asked to see the patient and his involvement is greatly appreciated.
[2017-10-21] MEDS ORDERED: Polyethylene Glycol 3350* 17 GM PACKET PO ONE (11:48)
--- NOTE | 2017-10-21 13:05 | PN ---
Subjective Date of Service: 10/21/17 Interval History: Ms. Saldana reports that her belly feels bloated but that she does not feel constipated. Her nausea and abdominal pain are reasonably controlled on her current regimen. Objective Active Medications: Acetaminophen (Tylenol Tab*) 650 mg PO Q6H FREYA Diazepam (Valium Tab(*)) 5 mg PO Q6H FREYA Ondansetron HCl (Zofran Tab*) 4 mg PO Q6H FREYA Oxycodone/Acetaminophen (Percocet 5/325 Tab*) 1 tab PO Q4H PRN Oxycodone/Acetaminophen (Percocet 5/325 Tab*) 2 tab PO Q4H PRN Vital Signs: Temp Pulse Resp BP Pulse Ox 98.4 F 49 16 110/68 94 10/21/17 11:31 10/21/17 11:31 10/21/17 11:31 10/21/17 11:31 10/21/17 11:31 Oxygen Devices in Use Now: None Appearance: Female sitting up in bed in NAD Eyes: No Scleral Icterus Ears/Nose/Mouth/Throat: Mucous Membranes Moist Neck: Trachea Midline Respiratory: Symmetrical Chest Expansion and Respiratory Effort, Clear to Auscultation Cardiovascular: NL Sounds; No Murmurs; No JVD, No Edema Abdominal: - - soft, non-distended, BS+ Extremities: No Edema Skin: No Rash or Ulcers Neurological: Alert and Oriented x 3, NL Muscle Strength and Tone Nutrition: Taking PO's Result Diagrams: 10/20/17 11:10 10/21/17 09:09 Assess/Plan/Problems-Billing Assessment: Ms. Saldana is a 47 yo female with a PMH of uterine leiomyoma who was admitted on 10/20/17 for uterine fibroid embolization. - Patient Problems (1) Uterine leiomyoma Comment: - S/P uterine fibroid embolization. - Doing well on current pain and nausea medication regimen. - Patient with some third spacing but good urine output. Appreciate consultation from Dr. Nguyen, no acute kidney injury identified. (2) DVT prophylaxis Comment: - Early mobility. (3) Full code status Comment: Status and Disposition: OBV. Discharge to home.
--- NOTE | 2017-10-21 13:14 | CONS ---
CC: Dr. Babb NEPHROLOGY CONSULTATION: DATE OF CONSULT: HISTORY OF PRESENT ILLNESS: Ms. Saldana is a 47-year-old female with a history of abdominal pain secon elissa to uterine fibroids. She was admitted for an ablation of uterine fibroids. During that procedu re, she received nonsteroidal anti- inflammatory agents for pain as well as x-ray contrast agents. H er urine volume was pretty low and then stopped. She has voided this morning. She received about 6 L of IV fluids in order to help out with renal function. Her pain is under much better control at th e present time, but she has not had a bowel movement for a few days. There is also question of wheth er or not she was dehydrated at the time of her procedure. PAST MEDICAL HISTORY: Previous medical history is significant for ADHD and narcolepsy. She has some seasonal allergies. MEDICATIONS: She takes fluticasone for nasal allergies and she has a prescription for Ritalin, which she does not use much. ALLERGIES: She has an allergy to ERYTHROMYCIN and IV CONTRAST AGENTS and SULFA ANTIBIOTICS. She did receive a steroid prep prior to this procedure. SOCIAL HISTORY: She is . She is a mathematics instructor. She does not alcohol, tobacco, or rec reational drugs. REVIEW OF SYSTEMS: Unremarkable. PHYSICAL EXAM: She is a well-developed, well-nourished white female, who appears a little uncomforta ble. Her blood pressure is 117/67 with a pulse of 53, respirations are 18, O2 saturation is 95%. Th ere is no jugular venous distention. She is anicteric. Her mucous membranes are moist. Her chest is clear. The heart revealed a regular rhythm without murmurs. The abdomen is soft. She has positive bowel sounds. Bones, joints, and extremities reveal trace-to-1+ edema. LABORATORY DATA: Review of laboratory studies reveals a white count of 8.4, hemoglobin of 13.8, plat elets 272,000. She has sodium of 133; potassium 4; chloride 108; total CO2 21; her creatinine is 0.7 6, it was 0.82 on presentation; BUN of 14. DISCUSSION: She has had a low-grade renal insult. The most likely problem to produce this would be direct contrast reaction as opposed to contrast allergy, either which is possible. There is also the possibility of acute interstitial nephritis secondary to the nonsteroidal anti-inflammatory agents. I am encouraged by the fact that she has begun to void, yet however, I am a little nervous as she dominguez s not had any bowel movements for a few days she has received a significant amount of opiates. I think probably she ought to receive some sort of cathartic and we demonstrated to have a bowel mov ement before she goes home; otherwise, I do not see any compelling reason to keep her here in the hos pital at present. She should have a followup visit with Dr. Babb in few days just to check her hever al function and then if necessary, I will see her back as an outpatient. [id number]/[facility] #: [id number]
--- NOTE | 2017-10-21 16:20 | PN ---
Progress Note - Progress Note Date of Service: 10/21/17 SOAP: Subjective: Pain controlled at her "normal" 2-4/10 cramping right pelvic pain. No nausea or emesis. Ambulating independently. + void. Objective: Urine output is >1.5 liters since midnight. Laboratory Tests 10/20/17 10/20/17 10/21/17 11:10 19:04 09:09 BUN 16 16 14 Creatinine 0.82 0.84 0.76 Est GFR (Non-Af Amer) 74.1 72.1 80.9 Selected Entries 10/21/17 15:41 Temperature 98.4 F Temperature Oral Source Pulse Rate 47 Respiratory 16 Rate Blood Pressure 117/67 (mmHg) Blood Pressure 78 Mean O2 Sat by Pulse 97 Oximetry Patient on Room Yes Air NAD, AAO x 3 RRR, S1/S2 + lung base crackles, lungs clear superiorly Abdomen is soft, nontender No flank pain to percussion Right groin is soft, nontender Dressing is CDI 2+ pulses at right [employer]ER, pop and dpa No pitting edema in the lower extremities RLE is neuromuscular intact Assessment: 47 YOF POD #1 Uterine Artery Embolization with pain and nausea well controlled without NSAIDs. The patient had low normal urine output overnight, but BMP remained normal and urine output is now normal. Plan: 1. Discharge to home. 2. Patient advised to use incentive spirometer 5x hourly while awake for 3 days. 3. PO fluids have been and will be encouraged. 4. Routine Interventional Radiology follow up will include RN clinic follow up telephone calls Monday and Monday. Follow up in the clinic in 6 weeks and 6 months. 5. The patient will follow up with her PCP to recheck BMP. If she notices a decrease in urine output or hematuria before then she will call IR or her PCP. 6. Dr. Nguyen evaluated the patient and will see her as an outpatient if her renal function shows signs of decline. 7. Outpatient Rx regimen will include: Tylenol 650 mg PO Q 6 hours x 5 days (this can increased to up to 1000 mg Q 6 hours if needed) Oxycontin 10 mg PO Q 12 hours x 3 days, dispense #12 (in case narcotic therapy needs to be extended) Oxycodone 5 mg PO Q 6 hours PRN for breakthrough pain x 7 days, dispense # 28 Zofran 4 mg PO Q 6 hours x 5 days, dispense #30, 1 refill Scopoloamine 1.5 mg TD patch: on the morning of Monday, replace current patch with new patch and wear x 3 days 8. Patient strongly advised to purchase laxative tea (E.g. Smooth Move) and drink one cup daily x 1 week to avoid constipation.
[2017-10-21] MEDS ORDERED: oxyCODONE SR TAB(*) 10 MG TAB.SR PO ONE (18:00)
[2017-10-21] MEDS ORDERED: oxyCODONE TAB* 5 MG TAB ONE (19:41)
[2017-10-21 20:01] VITALS: BP 132/68
[2017-10-21] MEDS ORDERED: Diazepam TAB(*) 5 MG PO PRN (20:05)
[2017-10-21] MEDS ORDERED: HYDROcodone/ACETAMIN 5-325 MG* 1 TAB PO ONE (20:11)
[2017-10-21] MEDS ORDERED: Diazepam TAB(*) 5 MG PO ONE (20:11)
[2017-10-21] MEDS ORDERED: oxyCODONE TAB* 5 MG TAB PO PRN (20:14)
[2017-10-21] MEDS ORDERED: Magnesium Hydroxide LIQ* 30 ML UDC PO ONE (20:20)
[2017-10-21] MEDS ORDERED: Docusate LIQ* 100 MG/10 ML UDC PO SCH (21:00)
[2017-10-22] MEDS ORDERED: Acetaminophen TAB* 325 MG PO SCH
[2017-10-22] MEDS ORDERED: Diazepam TAB(*) 5 MG PO PRN (02:00)
[2017-10-22] MEDS ORDERED: oxyCODONE SR TAB(*) 10 MG TAB.SR PO SCH (04:00)
--- NOTE | 2017-10-22 13:32 | DS ---
CC: Tera Babb MD * DISCHARGE SUMMARY: DATE OF ADMISSION: 10/20/17. DATE OF DISCHARGE: 10/21/17. PRIMARY CARE PHYSICIAN: Tera Babb MD. ATTENDING PHYSICIAN: Dr. Tom Rosario * (dictation provided by Blessing Colbert NP). PRIMARY DIAGNOSIS: Uterine leiomyoma, status post uterine artery embolization. SECONDARY DIAGNOSIS: None. MEDICATIONS: 1. Flonase 2 puffs as needed for allergies or wheezing. 2. Oxycodone 5 mg p.o. q. 6 hours p.r.n., breakthrough pain. 3. Oxycodone SR 10 mg p.o. q. 12 hours b.i.d. 4. Scopolamine patch 1 patch q. 72 hours. 5. Ondansetron 4 mg p.o. q. 6 hours p.r.n. 6. Tylenol 650 to 1000 mg q. 6 hours for pain. HOSPITAL COURSE: Ms. Saldana is a 47-year-old female with a past medical history of uterine leiomyoma and pelvic pain, who presented to the hospital on 10/20/17 with plan for uterine fibroid embolization. Ms. Saldana underwent the procedure on 10/20/17. Ms. Saldana had been noted to have some low urine output post procedure. She received approximately 5 L of fluid and had only about 600 mL of urine out up until about 6 a.m. today. There was concern that perhaps she had a mild kidney insult secondary to dye administration or perhaps Toradol. For that reason, we did repeat a basic metabolic panel today, which showed her BUN and creatinine are unchanged. She was also seen in consultation by Dr. Angel Nguyen from Nephrology. He agreed that she could have a mild interstitial nephritis as well as some amount of third spacing. Regardless, her urine output has improved significantly and she has no evidence of kidney impairment Ms. Saldana is doing much better through the day today. She has had over 1500 mL of urine out in the past 8 hours. She is up ambulating in her room independently. She is tolerating the discomfort and nausea associated with uterine fibroid embolization under current pain and antiemetic regimen. Ms. Saldana is medically stable discharge to home. DISPOSITION: To home. DIET: Regular. ACTIVITY: Per Dr. Horn's discharge instructions. FOLLOWUP PLANS: 1. Please follow up with Dr. Horn for the discharge instructions. 2. Please follow up with Dr. Babb as needed after this hospitalization. TIME SPENT: Approximately 60 minutes was spent in discharge of this patient, more than half the time was spent with the patient at the bedside reviewing the events leading up to this hospitalization, performing the physical examination, and reviewing my plan of care. BLESSING COLBERT NP [id number]/[facility] #: [id number] GARETH
== END 2017-10-21 21:05 | disposition home or self-care (01) ==
LOC: CHICARD 09:16 → SSU 14:17
PROVIDERS: ADMIT Internal Medicine; ATTEND Internal Medicine
DX: D25.9 Leiomyoma of uterus, unspecified (principal); E86.0 Dehydration; R10.2 Pelvic and perineal pain; R11.0 Nausea
CPT/HCPCS: 36415; 37243; 75625; 76770; 76937; 80048; 84702; 85025; 85610; 85730; 89190; 99156; 99157; A9270-GY; C1725; C1884; C1887; G0378; J1170; J1200; J1644; J1885; J2060; J2250; J2310; J2405; J3010; J7512

== ENCOUNTER 2018-02-14 10:07 | Emergency (ER) | payer OTHER | END 2018-02-14 11:07 | disposition left against medical advice (07) | LOC: UCEAST 10:07 | DX: Z53.21 Procedure and treatment not carried out due to patient leaving prior to being seen by health care provider (principal) ==

== ENCOUNTER 2018-09-13 10:11 | Emergency (ER) | payer OTHER ==
--- NOTE | 2018-09-13 10:35 | UC ---
Shortness of Breath HPI - HPI Summary HPI Summary: 47 yo female presents with feeling like she cannot get a deep breath. She says this symptoms have been presents for the last 3-4 weeks, but seemed worse last night. She attributes this to anxiety. She has a history of anxiety and was on Zoloft in the past, but stopped taking this about 2 years ago. Over the last few months she mentions she has had increased stress due to issues with her young adult son and his drug addictions. Pt is able to breath and is talking in complete sentences, but she states when she takes a deep breath she doesn't feel her lungs are completely filling. She has no personal or fam hx of blood clots. No cancer, recent travel, smoking, OBC, or illness. Denies fever, chills , sinus symptoms, sore throat, cough, chest pain, abdominal pain, n/v, or leg/ calf cramping. - History of Current Complaint Stated Complaint: SOB Time Seen by Provider: 09/13/18 10:25 Hx Obtained From: Patient Hx Last Menstrual Period: 09/08/17 Onset/Duration: Gradual Onset Current Severity: None - Allergy/Home Medications Allergies/Adverse Reactions: Allergies Allergy/AdvReac Type Severity Reaction Status Date / Time azithromycin Allergy Rash Verified 09/13/18 10:39 Iodinated Contrast- Oral and Allergy Rash Verified 09/13/18 10:39 IV Dye oxycodone [From OxyContin] Allergy RASH AND Verified 09/13/18 10:39 RENAL "ISSUES" Sulfa (Sulfonamide Allergy Rash Verified 09/13/18 10:39 Antibiotics) Home Medications: Home Medications NK [No Home Medications Reported] 09/13/18 [History Confirmed 09/13/18] PMH/Surg Hx/FS Hx/Imm Hx - Additional Past Medical History Additional PMH: Uterine leiomyoma Psychological History: Anxiety - Surgical History Surgical History: Yes Surgery Procedure, Year, and Place: C5-C6 FUSION; pelivic and ovarian cyst removal; right lumpectomy; tonsils;. 10/2017 - FIBROID EMBOLIZATION W/ DR PATEL - Family History Known Family History: Positive: Unknown Negative: Other - breast CA - Social History Occupation: Employed Full-time Lives: With Family Alcohol Use: Rare Substance Use Type: None Smoking Status (MU): Never Smoked Tobacco Review of Systems All Other Systems Reviewed And Are Negative: Yes Constitutional: Positive: Negative Skin: Positive: Negative Eyes: Positive: Negative ENT: Positive: Negative Respiratory: Positive: Shortness Of Breath Cardiovascular: Positive: Negative Gastrointestinal: Positive: Negative Musculoskeletal: Positive: Negative Neurological: Positive: Negative Psychological: Positive: Negative Physical Exam - Summary Physical Exam Summary: GENERAL: NAD. WDWN. No pain distress. SKIN: No rashes, sores, lesions, or open wounds. NECK: Supple. Nontender. No lymphadenopathy. CHEST: CTAB. No r/r/w. No accessory muscle use. Breathing comfortably and in no distress. CV: RRR. Without m/r/g. Pulses intact. Cap refill <2seconds. No friction rub. No carotid bruit. ABDOMEN: Soft. NTTP. Bowel sounds present MSK: Negative lillian sign NEURO: Alert. PSYCH: Age appropriate behavior. Triage Information Reviewed: Yes Vital Signs: Vital Signs: Temp Pulse Resp BP Pulse Ox 98.4 F 70 16 131/69 100 09/13/18 10:24 09/13/18 10:24 09/13/18 10:24 09/13/18 10:24 09/13/18 10:24 Vital Signs Reviewed: Yes Shortness of Breath Dx - Course Course Of Treatment: EKbpm NSR No ST changes as read by Dr. Bradshaw. Discussed obtaining CXR today, but pt declined. She has no risk factors for DVT/ PE and is breathing comfortably on exam. No findings suggestive of pericarditis. We discussed the possibility of this being anxiety related, especially given her stressful home life. She did not want to go to the ED for further workup today and prefers to f/u with her PCP within a week. I advised her to go to the ED if her symptoms worsen. Pt voiced understanding - Differential Dx/Diagnosis Provider Diagnosis: SOB (shortness of breath) Discharge - Sign-Out/Discharge Documenting (check all that apply): Patient Departure All imaging exams completed and their final reports reviewed: No Studies - Discharge Plan Condition: Stable Disposition: HOME Referrals: Tera Babb MD [Primary Care Provider] - 1 Week Additional Instructions: If you develop a fever, shortness of breath, chest pain, new or worsening symptoms - please call your PCP or go to the ED. Please see your primary doctor within 1 week for a recheck of your symptoms - Billing Disposition and Condition Condition: STABLE Disposition: Home - Attestation Statements Provider Attestation: I was available for consult. This patient was seen by the [facility]. The patient was not presented to, seen by, or examined by me. -Rosemary
[2018-09-13 10:39] VITALS: BP 131/69
== END 2018-09-13 11:03 | disposition home or self-care (01) ==
LOC: UCEAST 10:11
DX: R07.9 Chest pain, unspecified (principal); Z88.1 Allergy status to other antibiotic agents; Z88.5 Allergy status to narcotic agent; Z88.2 Allergy status to sulfonamides
CPT/HCPCS: 93005; 99211; G0463

== ENCOUNTER 2021-04-12 08:41 | Observation (INO) ==
[2021-04-12] MEDS ORDERED: Morphine 4 MG/ML VIAL (1 ml) IV ONE ×2 (09:09→09:40)
[2021-04-12] MEDS ORDERED: Ondansetron 4 mg VIAL 2 MG/ML 2 ml VIAL IV ONE (09:14)
[2021-04-12 09:50] LABS: ABS Basophils 0.1 10^3/ul (0-0.2); ABS Eosinophils 0.9 10^3/ul (0-0.6); ABS Monocytes 0.4 10^3/ul (0-0.8); Eosinophil % 14.6 %; Hematocrit 42 % (35-47); Hemoglobin 14.3 g/dL (12.0-16.0); Lymphocyte % 31.1 %; Mean Corpuscular HGB Conc 34 g/dL (31-36); Mean Corpuscular Hemoglobin 31 pg (27-31); Mean Corpuscular Volume 90 fL (80-97); Mean Platelet Volume 7.9 fL (7.4-10.4); Platelet Count 289 10^3/uL (150-450); Red Cell Distribution Width 13 % (10-15); White Blood Count 6.3 10^3/uL (3.5-10.8)
[2021-04-12 09:53] LABS: Urine Appearance Cloudy; Urine Bilirubin Negative (Negative); Urine Blood 1+ (Negative); Urine Color Yellow; Urine Glucose Negative (Negative); Urine Ketones Negative (Negative); Urine Nitrite Negative (Negative); Urine Protein 1+(30 mg/dL) (Negative); Urine Specific Gravity 1.014 (1.002-1.030); Urine Urobilinogen Negative (Negative)
[2021-04-12 09:59] LABS: Urine Bacteria 1+ (Absent); Urine Red Blood Cell 3+(>10/hpf) (Absent); Urine Squamous Epithelial Cell Present (Absent); Urine White Blood Cell 2+(11-20/hpf) (Absent)
[2021-04-12 10:06] LABS: C Reactive Protein 1.05 mg/L (<8.01); Calcium 10.3 mg/dL (8.6-10.3); EGFR African American 68.9 (>60); EGFR Non-African American 56.9 (>60); Potassium 3.9 mmol/L (3.5-5.0)
[2021-04-12] MEDS ORDERED: fentaNYL 100 mcg/2 ml 50 MCG/ML VIAL IV SLOW PU ONE (11:08)
[2021-04-12] MEDS ORDERED: NS 0.9% 1000 ml BAG 1,000 ML IV ONE (11:17)
[2021-04-12] MEDS ORDERED: HYDROcodone/ACETAMIN 5/325 mg TAB PO ONE (11:32)
[2021-04-12] MEDS ORDERED: [UNRECOGNIZED DRUG - REMARK] IV ONE (12:22)
[2021-04-12] MEDS ORDERED: Lidocaine 2% (CARDIAC or IV) 20 MG/ML 5 ML SYRINGE (100 MG) ONE (12:38)
[2021-04-12] MEDS ORDERED: HYDROcodone/ACETAMIN 5/325 mg TAB PO PRN ×3 (14:05→14:37)
[2021-04-12] MEDS: NS 0.9% 1000 ml BAG 1,000 ML IV SCH ×2 (14:08→23:22)
[2021-04-12] MEDS ORDERED: Ondansetron 4 mg VIAL 2 MG/ML 2 ml VIAL IV PRN (14:13)
[2021-04-12] MEDS ORDERED: cefTRIAXone 1 GM/50 ML PREMIX.BAG IV ONE (15:00)
[2021-04-13 05:51] LABS: ABS Eosinophils 0.7 10^3/ul (0-0.6); ABS Lymphocytes 1.6 10^3/ul (1.0-4.8); ABS Monocytes 0.4 10^3/ul (0-0.8); ABS Neutrophils 2.4 10^3/ul (1.5-7.7); Eosinophil % 12.9 %; Hematocrit 32 % (35-47); Hemoglobin 10.9 g/dL (12.0-16.0); Mean Corpuscular HGB Conc 35 g/dL (31-36); Mean Corpuscular Hemoglobin 31 pg (27-31); Mean Corpuscular Volume 91 fL (80-97); Platelet Count 188 10^3/uL (150-450); Red Blood Count 3.47 10^6 /uL (3.70-4.87); Red Cell Distribution Width 14 % (10-15); White Blood Count 5.1 10^3/uL (3.5-10.8)
[2021-04-13 06:15] LABS: Calcium 8.6 mg/dL (8.6-10.3); EGFR African American 83.8 (>60); EGFR Non-African American 69.3 (>60); Potassium 3.9 mmol/L (3.5-5.0)
[2021-04-13] MEDS: NS 0.9% 1000 ml BAG 1,000 ML IV SCH (08:37)
[2021-04-13 11:57] VITALS: BP 95/61
[2021-04-13] MEDS ORDERED: cefTRIAXone 1 gm/50 mL NS BAG 1 GM/50 ML BAG IVPB SCH (14:30)
== END 2021-04-13 13:20 | disposition home or self-care (01) ==
LOC: MED 08:41 → ED 08:41 → MED 22:42
PROVIDERS: ADMIT Hospitalist; ATTEND Hospitalist